=== PATIENT | male | born 1970 | race Asian ===

== ENCOUNTER 2022-04-21 17:02 | Emergency (ER) | payer MEDICAID, OTHER ==
[~2022-04-21] VITALS: Ht 165.1 cm; Wt 65.0 kg
[2022-04-21 18:26] VITALS: BP 144/86
[2022-04-21 19:07] LABS: BASOPHILS % 0.5 % (0.0-2.0); EOSINOPHILS % 1.1 % (0.0-5.0); HEMATOCRIT. 33.4 % (42.0-52.0); HEMOGLOBIN. 11.4 g/dL (14.0-18.0); LYMPHOCYTES % 10.6 % (20.0-50.0); MEAN CORPUSCULAR HEMOGLOBIN 32.2 pg (28.0-32.0); MEAN CORPUSCULAR VOLUME 94.4 fL (80.0-94.0); MEAN PLATELET VOLUME 7.8 fl (7.4-10.4); MONOCYTES % 6.2 % (2.0-8.0); NEUTROPHILS % 81.6 % (40.0-76.0); PLATELET 228 x1000/uL (130-400); RED BLOOD CELL COUNT 3.54 mill/uL (4.7-6.1); RED CELL DISTRIBUTION WIDTH 12.7 % (11.6-14.6)
[2022-04-21 19:17] LABS: CHLORIDE 108 mEq/L (98-107)
[2022-04-21 19:22] LABS: ETHANOL BLOOD < 10 mg/dL
== END 2022-04-21 21:18 | disposition home or self-care (01) ==
LOC: ER 17:02
DX: I95.89 Other hypotension (principal); R73.9 Hyperglycemia, unspecified; I45.10 Unspecified right bundle-branch block
CPT/HCPCS: 36415; 80053; 80320; 85025; 93005; 99284; G0480